=== PATIENT | female | born 1960 | race Caucasian/White ===

== ENCOUNTER → 2020-08-31 | Outpatient (CLI) | payer MEDICAID ==
[2016-07-07 14:40] VITALS: BP 109/71
[~2020-08-31] MED LIST: AMLO-186 PO; METF500T16 PO; NEBI10TA3 PO; VALS40TA2 PO
--- NOTE | 2020-08-31 15:49 | RAD ---
EXAM: AP and lateral views left hip DATE: 08/31/2020 12:00 AM INDICATION: LEFT HIP PAIN COMPARISON: No Prior FINDINGS/ IMPRESSION: 1. No evidence of acute fracture or dislocation. 2. Joint spaces are preserved without significant degenerative/proliferative change. Electronically signed by: Garry Quigley MD (08/31/2020 3:46 PM) [id number]
== END ==
LOC: RAD 13:39
PROVIDERS: ATTEND Family Medicine
DX: M25.552 Pain in left hip (principal)
CPT/HCPCS: 73502